=== PATIENT | female | born 1985 | race Caucasian/White ===

== ENCOUNTER 2022-05-20 05:17 | Inpatient (IN) ==
[~2022-05-20 05:17] MED LIST: *HR* FentaNYL (PF) 100 MCG/2 ML VIAL IVP PRN; *HR* Nalbuphine 10 MG/ML AMPUL IV PRN; Azithromycin 500 MG in 0.9 % Sodium Chloride 250 ML IVPB PRN; Famotidine 20 MG/2 ML VIAL IVP PRN; Lidocaine 1% 20 ML MDV ID PRN; Metoclopramide 10 MG/2 ML VIAL IVP PRN; Naloxone 0.4 MG/ML INJ IVP PRN; Ondansetron 4 MG/2 ML VIAL IVP PRN
[2022-05-20] MEDS ORDERED: Ringers Solution, Lactated 1,000 ML IVC SCH (05:30)
[2022-05-20 05:38] LABS: Basophils # 0.1 K/mcL (0.0-0.2); Basophils % 0.5 %; Eosinophils # 0.2 K/mcL (0.0-0.6); Eosinophils % 2.3 %; Hematocrit 38.5 % (35.3-44.9); Hemoglobin 12.9 g/dL (11.5-15.4); Immature Granulocytes % 0.7 % (0-4); Lymphocytes # 2.2 K/mcL (0.6-4.6); Lymphocytes % 20.8 %; Mean Corpuscular HGB Conc 33.5 g/dL (31.6-35.5); Mean Corpuscular Volume 92.5 fL (83.0-100.0); Mean Platelet Volume 10.2 fL (9.4-12.4); Monocytes # 0.6 K/mcL (0.0-1.3); Monocytes % 5.7 %; Neutrophils # 7.3 K/mcL (1.6-8.9); Platelet Count 230 K/mcL (140-400); Red Blood Count 4.16 M/mcL (3.82-4.97); White Blood Count 10.5 K/mcL (4.3-11.1)
[2022-05-20] MEDS ORDERED: EPHEDrine 50 MG/ML VIAL IVP PRN (07:18)
[2022-05-20] MEDS ORDERED: Epidural Premix (fent/bupiv) 110 ML EP SCH (07:30)
[2022-05-20 07:52] LABS: Amphetamine Screen,Urine Negative ng/mL (Cutoff=1000); Barbiturate Screen,Urine Negative ng/mL (Cutoff=200); Benzodiazepines Screen,Urine Negative ng/mL (Cutoff=200); Cannabinoid Screen,Urine Negative ng/mL (Cutoff = 50); Cocaine Screen,Urine Negative ng/mL (Cutoff= 300); Opiate Screen,Urine Negative ng/mL (Cutoff=300); Phencyclidine Screen,Urine Negative ng/mL (Cutoff=25)
[2022-05-20] MEDS ORDERED: Oxytocin 30 UNIT/503 ML BAG IVC SCH ×2 (17:30→22:17)
[2022-05-20] MEDS ORDERED: Ropivacaine/PF 0.5% 30 ML VIAL ONE (18:37)
[2022-05-20] MEDS ORDERED: *HR* FentaNYL (PF) 100 MCG/2 ML VIAL ONE (18:37)
[2022-05-20] MEDS ORDERED: Ropivacaine/PF 0.2% 20 ML VIAL ONE (18:37)
[2022-05-20] MEDS ORDERED: Lidocaine/EPI 1:200k 2% PF 20 ML VIAL ONE (18:37)
[2022-05-20] MEDS ORDERED: Rho Immune Globulin 1,500 UNIT SYRINGE IM PRN (22:17)
[2022-05-20] MEDS ORDERED: OXYTOCIN/RINGERS LACTATE 10 UNIT/166.6 ML BAG IVC ONE (22:17)
[2022-05-20] MEDS ORDERED: Measles/Mumps/Rubella Vacc 0.5 ML VIAL SQ PRN (22:17)
[2022-05-20 23:27] LABS: Hematocrit 36.7 % (35.3-44.9)
[2022-05-21] MEDS: Ibuprofen 600 MG TABLET PO SCH ×3 (04:13→21:33)
[2022-05-21 05:39] LABS: Basophils % 0.3 %; Eosinophils # 0.1 K/mcL (0.0-0.6); Eosinophils % 0.5 %; Hematocrit 32.3 % (35.3-44.9); Hemoglobin 10.8 g/dL (11.5-15.4); Immature Granulocytes % 0.6 % (0-4); Lymphocytes # 2.1 K/mcL (0.6-4.6); Lymphocytes % 14.4 %; Mean Corpuscular HGB Conc 33.4 g/dL (31.6-35.5); Mean Corpuscular Hemoglobin 31.2 pg (28.0-33.3); Mean Corpuscular Volume 93.4 fL (83.0-100.0); Mean Platelet Volume 10.6 fL (9.4-12.4); Monocytes # 0.6 K/mcL (0.0-1.3); Monocytes % 3.9 %; Neutrophils # 11.9 K/mcL (1.6-8.9); Platelet Count 196 K/mcL (140-400); Red Blood Count 3.46 M/mcL (3.82-4.97); Red Cell Distribution Width 13.1 % (11.5-14.5); Segmented Neutrophils % 80.3 %; White Blood Count 14.8 K/mcL (4.3-11.1)
[2022-05-21] MEDS ORDERED: 0.9 % Sodium Chloride 1,000 ML IVC SCH (06:00)
[2022-05-21] MEDS: Acetaminophen 325 MG TABLET PO SCH ×3 (06:11→21:33)
[2022-05-21] MEDS ORDERED: Ringers Solution, Lactated 1,000 ML IVC SCH (06:15)
[2022-05-21] MEDS: Prenatal Vit/FA 1 EACH TABLET PO SCH (09:09)
[2022-05-21] MEDS: Lanolin 7 G OINT...G. TP PRN (21:33)
[2022-05-21] MEDS: Benzocaine/Menthol 56 GM AEROSOL SPRAY TP PRN (21:33)
[2022-05-22] MEDS: Acetaminophen 325 MG TABLET PO SCH ×3 (00:41→11:19)
[2022-05-22] MEDS: Ibuprofen 600 MG TABLET PO SCH ×3 (00:43→11:19)
[2022-05-22 06:22] VITALS: BP 111/73; PULSE 100; TEMP 97.9; O2SAT 100
[2022-05-22] MEDS: Benzocaine/Menthol 56 GM AEROSOL SPRAY TP PRN (08:09)
[2022-05-22] MEDS: Prenatal Vit/FA 1 EACH TABLET PO SCH (08:09)
[2022-05-22] MEDS: Lanolin 7 G OINT...G. TP PRN (08:09)
== END 2022-05-22 13:30 | disposition home or self-care (01) | DRG 807 ==
LOC: 1NENULAB → 1NENUOBS 05-21 00:05
PROVIDERS: ADMIT Obstetrics & Gynecology; ATTEND Obstetrics & Gynecology